=== PATIENT | female | born 1950 ===

== ENCOUNTER 2024-01-25 05:28 | Outpatient (CLI) | payer OTHER, SELFPAY ==
[2024-01-25] MEDS: Inhaler, Assist Device 1 EACH MC (16:58)
[2024-01-25] MEDS: Albuterol HFA 18 GM 200 PUFF INH IH (16:58)
[2024-01-25] MEDS: Methacholine 100 MG VIAL IH (16:58)
--- NOTE | 2024-01-29 12:26 | W.PFT ---
Date of service: 01/25/24 Time of Service: 14:44 Pulmonary Function Test Result Indications: Dyspnea Interpretation Spirometry: There is moderate airflow limitation. There was a 25% decrease in FEV1 with administration of 0.25mg/mL methacholine. Lung Volumes: Normal lung volumes Diffusion Capacity: Normal diffusion Airway Pressure: Increased airways resistance Impression Moderate airflow limitation with a positive methacholine challenge Clinical Correlation therefore is recommended.
== END 2024-01-25 05:29 | disposition home or self-care (01) ==
PROVIDERS: PCP Registered Nurse; Visit Provider Student in an Organized Health Care Education/Training Program
DX: R06.00 Dyspnea, unspecified (principal)
CPT/HCPCS: 94060; 94070; 94726; 94729; 94010; J7674